=== PATIENT | male | born 1960 | race Caucasian/White ===

== ENCOUNTER → 2019-09-10 06:47 | Outpatient (CLI) | payer MEDICARE, MEDICAID, SELFPAY ==
--- NOTE | 2019-09-10 | DI.MRI.S_ITS ---
PROCEDURE: MR HIP LT WO CON INDICATIONS: Pain in left hip TECHNIQUE: Noncontrast coronal T1 spin echo and STIR through the bony pelvis. Coronal and axial T2 fast spin echo with fat saturation, sagittal T1 spin echo, and oblique axial T2 fast spin echo with fat saturation through the hip. COMPARISON: None. FINDINGS: Image quality: Diagnostic. Bones and joints: There is no acute fracture, dislocation, suspicious osseous lesion, or evidence of avascular necrosis involving the left hip. Early degenerative changes of the left hip are present. There is thinning of the hyaline articular cartilage with mild heterogeneity. Small developing marginal osteophytes along the superior margin of the femoral head are present. There may be mild degenerative cystic change along the periphery of the superior acetabulum. No significant joint effusion is identified. The alpha angle of the left femoral head measures less than 55?. The other imaged osseous structures of the pelvis are intact without acute fracture or suspicious osseous lesion evident. Labrum: Evaluation of the left acetabular labrum is suboptimal without intra-articular contrast. Heterogeneity along the anterosuperior aspect of the labrum is evident, suggesting a possible labral tear. Increased signal in the posterior inferior aspect of the labrum also is suspicious for a small labral tear. No detached fragments or large para labral cysts are evident. Tendons and ligaments: The ligamentum teres appears intact where visualized. The distal right gluteus medius and gluteus minimus tendons are intact. There is slight increased signal of the distal gluteus medius tendon. The distal iliopsoas tendon and the proximal hamstrings tendons are within normal limits. Prominent subcutaneous edema is identified along the lateral margin of the thigh. No drainable or loculated fluid collections are evident. No significant fluid is seen within the greater trochanteric bursa. Imaged portions of the adductor muscles are within normal limits. Soft tissues: Visualized muscles demonstrate normal bulk and internal signal. Quadratus femoris muscle demonstrates no internal edema to suggest ischiofemoral impingement. The proximal sciatic neurovascular bundle appears normal adjacent to the hamstring tendons. No free pelvic fluid. Bladder wall thickness is normal. Genitourinary structures and bowel loops appear normal where visualized. IMPRESSION: 1. No acute osseous abnormality of the left hip. 2. Possible small anterosuperior and posterior inferior labral tears. 3. Mild degenerative changes of the left hip. 4. Minimal distal left gluteus minimus tendinopathy without significant tearing. The other muscles and tendons of the left hip appear to be within normal limits. 5. Subcutaneous edema along the lateral margin of the hip without a drainable fluid collection may represent soft tissue injury. Note: Findings were relayed to Dr. Gonsales's clinic nurse (Bryant) at 0933 hours (PST) on 09/10/19. Dictated by: Gregg Chaudhry M.D. on 09/10/2019 at 8:25 Approved by: Gregg Chaudhry M.D. on 09/10/2019 at 8:34
== END ==
PROVIDERS: PCP Internal Medicine; Visit Provider Orthopaedic Surgery Sports Medicine
DX: M25.552 Pain in left hip (principal); M25.452 Effusion, left hip
CPT/HCPCS: 73721

== ENCOUNTER → 2021-03-24 08:18 | Outpatient (CLI) | payer MEDICARE, MEDICAID, SELFPAY ==
--- NOTE | 2021-03-24 08:22 | DI.RAD.S_ITS ---
PROCEDURE: FL BARIUM SWALLOW W SPEECH INDICATIONS: Other dysphagia COMPARISON: None. TECHNIQUE: Examination was conducted in conjunction with speech pathology per standard protocol. In the lateral projection, filming was performed of the patient swallowing. AP projection filming may also be performed with patient swallowing. COMPARISON: FINDINGS: Function: The oral preparatory phase appears normal, with proper containment. The subsequent oral propulsive phase, pharyngeal phase, and esophageal phase of swallowing also appear normal with all proffered substances. No laryngotracheal penetration or aspiration. No pathologic vallecular pooling. There was a single of event of anterior penetration of thin liquid observed during the course of the examination. Morphology: No cricopharyngeal bar is identified. No cervical esophageal webs. No Zenker's diverticulum. No strictures. IMPRESSION: Single event of anterior penetration of thin liquid over the course of the examination. No additional penetration, or aspiration, is observed. Please also refer to the dedicated speech therapy swallowing evaluation report which will be independently generated. Dictated by: Peter Bucio M.D. on 03/26/2021 at 9:17 Approved by: Peter Bucio M.D. on 03/26/2021 at 9:18
--- NOTE | 2021-03-24 19:31 | ST.SWALLOW ---
Visit Care Team Role Provider Type Linnette Mercado MD Attending Provider Non-Staff Primary Care Provider Referring Provider Specialty: Medical Address: [address] [address], [phone] Email: Modified Barium Swallow Study DIRECTOR OF THERAPY SERVICES Clinical Instructor Line Start: 03/24/21 19:29 Freq: Status: Active Protocol: Document 03/24/21 19:30 HOLA (Rec: 03/24/21 19:30 HOLA [id number]) Clinical Instructor Signature Clinical Instructor Clinical Instructor Yes DIRECTOR OF THERAPY SERVICES Modified Barium Swallow Study Start: 03/24/21 09:28 Freq: Status: Active Protocol: Document 03/24/21 11:35 EB (Rec: 03/24/21 12:31 EB [id number]) Modified Barium Swallow Study Total Time Visit Start Time 08:30 Visit Stop Time 09:00 Total Visit Minutes 30 Referral Referring Physician Linnette Mercado Reason for Referral Dysphagia Setting Setting Outpatient Care Patient Information Identification Type Name,ID Card Patient History Patient is a 60 year old male who is currently living and receiving services at [facility]. 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 Subjective Observations Patient arrived on time accompanied by the DIRECTOR OF THERAPY SERVICES who has been working with the patient since his admittance to the [facility]. His DIRECTOR OF THERAPY SERVICES reported that she feels he is no longer silently aspirating and that he may be ready to progress to a natural nectar thick liquid diet. She requested that the patient trial factory nectar consistency as well as a more natural nectar thick consistency with the use of strategies that he is currently implementing which includes a chin tuck, small sips, slight lean forward, with a straw. She reported that he often independently utilizes a double swallow while eating and drinking. When asked about his swallow the patient reported that he feels like it has improved and appeared to demonstrate understanding of what strategies to use when drinking and eating. MBSS conducted and note written by student DIRECTOR OF THERAPY SERVICES Kyleigh Huang. Patient Positioning Position View Lateral Imaging Lateral View Textures Administered Trials Presented Thin Liquid via Straw,[place] Liquid via Spoon,[place] Liquid via Cup,[place] Liquid via Straw,Honey Liquid via Spoon, Pudding Thick Liquid via Spoon ,Mechanical Soft Textures, Regular Textures,Barium Tablet Oral Phase Source: MBSIMP (TM) (C) Bolus Specific Scoring Grid Lip Closure Mild Impairment Tongue Control During Bolus Hold Minimal Impairment Bolus Prep/Mastication Mild Impairment Bolus Transport/Lingual Motion WFL A/P Lingual Propulsion Delay No Oral Residue Mild Impairment Residue Clearing WFL Nasal Regurgitation No Additional Oral Phase Observations Oral Peripheral Exam: Features were symmetrical with his facial structures and jaw to be within functional limits in strength, coordination, and ROM. Tongue and chewing movements appeared to be slow but were WFL. During OPE, student DIRECTOR OF THERAPY SERVICES had difficulty palpating patient's tongue through his cheek, indicating possible weakness. He also was noted to have limited range of motion upon elevation and depression, although, his DIRECTOR OF THERAPY SERVICES reported that he is improved from his last OPE. Mild impairment noted with lip closure due to bolus escape slightly past the vermilion border. Tongue base weakness as indicated by posterior bolus escape down to pyriform sinuses which increases his risk of aspiration, greater with liquids then solids. Trace to mild oral residue was noted along the palate and tongue, which escaped to the valleculae post swallow. He was able to effectively clear with the use of a double swallow. Pharyngeal Phase Source: MBSIMP (TM) (C) Bolus Specific Scoring Grid Delayed Initiation of Pharyngeal Swallow Yes Soft Palate Elevation Minimal Impairment Tongue Base Strength/Range of Motion WFL Residue Along the Tongue Base Yes Clearance of Residue Along Tongue Base WFL Laryngeal Elevation WFL Anterior Hyoid Movement Mild Impairment Epiglottic Range of Motion No Impairment (WNL) Vallecular Residue Yes: Trace-mild Clearance of Vallecular Residue WFL Laryngeal Vestibular Closure Mild Impairment Pharyngeal Stripping Wave Mild Impairment Posterior Pharyngeal Wall Residue No Upper Esophageal Sphincter Opening No Impairment (WNL) Residue in the Pyriform Sinuses Yes: Trace Clearance of Residue in the Pyriform No Impairment (WNL) Sinuses Pharyngoesophageal Backflow Observed No Additional Pharyngeal Phase Observations Soft palate elevation appeared to be inconsistent with occasional trace column of contrast/air between the soft palate and pharyngeal wall, but overall, the soft palate was able to make contact with the pharyngeal wall. While the hyoid did move anteriorly, it was not consistently a complete anterior movement, contributing to incomplete airway closure and penetration of liquids. Two instances of penetration, once with natural nectar consistency with the use of strategies and once with thin liquid from a straw, PA score of 2 as contrast appeared to be ejected from the airway; due to patient's body mass, view of trachea was partially blocked therefore was unable to rule out potential trace aspiration x1. Both instances of penetration occurred when the pt took large sips. Trace residue was noted on the tongue base, valleculae, and pyriform sinuses with the majority cleared after a second swallow. The pharyngeal stripping wave was present but diminished, indicating mild impairment. A/P View Clinical Impressions Dysphagia Type Mild-Moderate Oropharyngeal Dysphagia Findings The patient presents with mild -moderate oropharyngeal dysphagia. Oral dysphagia is characterized by generalized weakness that results in slow but adequate bolus manipulation and reduced posterior bolus containment. Pharyngeal dysphagia is characterized by delayed swallow trigger, partial anterior hyoid excursion, incomplete airway closure. This contributed to spillage of oral residue and allowed for penetration of liquid. No aspiration was observed, however, visualization was limited by pt's body mass and therefore cannot be ruled out. Pt benefits from use of strategies and should continue to use them as penetration was noted when he took too large of a sip. Rehabilitation Potential Good Patient Appropriate for Therapy Yes: Receives services from SNF Recommendations Diet Liquids Order [place] Diet Order Regular Medication Recommendation As Tolerated,Whole in [place] Additional Dietary Needs Chopped Food,Single Sips, Controlled Sips,Reminders to Use Strategies Aspiration Precautions Recommended Precautions Upright at 90 Degrees,Small Bites/Sips,Chin Tuck,Double Swallow Treatment Plan Compensatory Strategies Recommendations Sitting Upright (90 deg),Chin Tuck,Small Bites and Sips Short Term Goals Continue exercises increasing strength, coordination, and ROM of swallow musculature. Target posterior oral containment, swallow trigger, and airway closure. Placement Recommendation After Discharge Long Term Facility Additional Recommendations/Comments Continue treatment with SNF DIRECTOR OF THERAPY SERVICES.
== END ==
PROVIDERS: PCP Internal Medicine; Referring Provider Internal Medicine; Visit Provider Internal Medicine
DX: R13.19 Other dysphagia (principal)
CPT/HCPCS: 74220; 74230; 92611